=== PATIENT | female | born 1985 | race Caucasian/White ===

== ENCOUNTER 2017-05-20 14:47 | Emergency (ER) | payer SELFPAY | END 2017-05-20 15:15 | disposition left against medical advice (07) | LOC: ER 14:47 | DX: F41.9 Anxiety disorder, unspecified (principal); Z53.21 Procedure and treatment not carried out due to patient leaving prior to being seen by health care provider ==

== ENCOUNTER 2017-05-21 05:06 | Emergency (ER) | payer SELFPAY ==
[2017-05-21 05:24] LABS: ADD MAN DIFF? NO; BASO # 0.1 x10^3/uL (0.0-0.2); BASO % 1 % (0-3); EOS % 2 % (0-3); HEMATOCRIT 41.2 % (36.0-47.0); HEMOGLOBIN 14.1 g/dL (12.0-15.5); LYMPH # 4.2 x10^3/uL (1.0-4.8); LYMPH % 33 % (24-48); MEAN CORPUSCULAR HEMOGLOBIN 30 pg (25-35); MEAN CORPUSCULAR HGB CONC 34 g/dL (31-37); MEAN CORPUSCULAR VOLUME 89 fL (79-100); MONO % 6 % (0-9); NEUT % 59 % (31-73); PLATELET COUNT 333 x10^3/uL (140-400); RED BLOOD COUNT 4.65 x10^6/uL (3.50-5.40); RED CELL DISTRIBUTION WIDTH 11.8 % (11.5-14.5); WHITE BLOOD COUNT 12.8 x10^3/uL (4.0-11.0)
[2017-05-21 05:38] LABS: ANION GAP 14 (6-14); BLOOD UREA NITROGEN 17 mg/dL (7-20); BUN/CREATININE RATIO 21 (6-20); CALCIUM 9.1 mg/dL (8.5-10.1); CARBON DIOXIDE 26 mmol/L (21-32); CHLORIDE 103 mmol/L (98-107); CREATININE 0.8 mg/dL (0.6-1.0); GFR 84.8; GLUCOSE 97 mg/dL (70-99); SODIUM 143 mmol/L (136-145)
[2017-05-21 05:40] LABS: POTASSIUM 4.3 mmol/L (3.5-5.1)
[2017-05-21 05:43] LABS: ALBUMIN 4.4 g/dL (3.4-5.0); ALBUMIN/GLOBULIN RATIO 1.2 (1.0-1.7); ALK PHOS 72 U/L (46-116); ALT (SGPT) 30 U/L (14-59); AST (SGOT) 30 U/L (15-37); TOTAL BILIRUBIN 0.6 mg/dL (0.2-1.0); TOTAL PROTEIN 8.1 g/dL (6.4-8.2)
[2017-05-21] MEDS: IV NORMAL SALINE 1000ML BAG 1,000 ML IV ×2 (05:44→09:02)
[2017-05-21 11:32] LABS: BARBITURATES NEG (NEG); BENZODIAZEPINES NEG (NEG); CANNABINOIDS POS (NEG); COCAINE NEG (NEG); METHADONE NEG (NEG); OPIATES NEG (NEG); PHENCYCLIDINE NEG (NEG)
[2017-05-21 11:39] LABS: ETHANOL, URINE NEG (NEG)
[2017-05-21 12:52] LABS: NEG OBC SER NEG; POS OBC SER POS
== END 2017-05-21 14:48 | disposition home or self-care (01) ==
LOC: ER 05:06
DX: F15.159 Other stimulant abuse with stimulant-induced psychotic disorder, unspecified (principal); F41.9 Anxiety disorder, unspecified
CPT/HCPCS: 36415; 51702; 70450; 80053; 80307; 80329; 84484; 84703; 85025; 93005; 96361; 96374; 96376; 99285-25; J2060; J7030